=== PATIENT | female | born 1970 | race Caucasian/White ===

== ENCOUNTER 2017-05-10 16:29 | Observation (INO) | payer BC ==
[~2017-05-10] VITALS: Ht 170.2 cm; Wt 91.0 kg
[2017-05-10 16:31] VITALS: BP 166/90; PULSE 83; RESP 12; TEMP 98.1; O2SAT 98
[2017-05-10 16:54] VITALS: BP 161/82; PULSE 71; RESP 14; TEMP 98.5; O2SAT 95
[2017-05-10] MEDS ORDERED: ONDANSETRON HCL 4 MG/2 ML VIAL IV PUSH ONE (17:30)
--- NOTE | 2017-05-10 17:37 | PD ---
HPI Chief Complaint: Neuro Symptoms/ Deficits Time Seen by Provider: 17:07 Travel History International Travel<30 days: No Contact w/Intl Traveler<30days: No Traveled to known affect area: No History of Present Illness HPI 47-year-old female complains of headache, pain and numbness sensation in the right side of face, pain and numbness of the right-sided neck and right shoulder pad area and numbness and tingling sensation in both arms. Patient states that the symptoms started about half an hour prior coming to the emergency room. Patient states the headache aching headache diffuse over the head. Patient denies any visual change. Patient denies any photophobia. Patient denies any neck stiffness. Patient denies any chest pain or shortness of breath. Patient denies abdominal pain. Patient denies any nausea vomiting diarrhea. Patient denies any back pain. Patient denies any fever chills. Patient denies any history TIA or CVA. Patient denies history hypertension, diabetes, dyslipidemia. PFSH Past Medical History Medical History: Denies Significant Hx ?: Not Past Surgical History Surgical History: No Previous Surgery Section: Yes Social History Alcohol Use: Yes Tobacco Use: No Substance Use: No Allergies-Medications (Allergen,Severity, Reaction): Coded Allergies: No Known Allergies (Unverified , 05/10/17) Review of Systems General / Constitutional: No: Fever Eyes: No: Visual changes HENT: Positive: Headaches Cardiovascular: No: Chest Pain or Discomfort Respiratory: No: Shortness of Breath Gastrointestinal: No: Abdominal Pain Genitourinary: No: Dysuria Musculoskeletal: No: Pain Skin: No Rash Neurologic: Positive: Paresthesia, No: Weakness Psychiatric: No: Depression Endocrine: No: Polydipsia Hematologic/Lymphatic: No: Easy Bruising Physical Exam Narrative GENERAL: Well-nourished, well-developed patient. SKIN: Focused skin assessment warm/dry. HEAD: Normocephalic. EYES: No scleral icterus. No injection or drainage. Pupils 2 mm equal reactive. NECK: Supple, trachea midline. No JVD or lymphadenopathy. CARDIOVASCULAR: Regular rate and rhythm without murmurs, gallops, or rubs. RESPIRATORY: Breath sounds equal bilaterally. No accessory muscle use. GASTROINTESTINAL: Abdomen soft, non-tender, nondistended. MUSCULOSKELETAL: No cyanosis, or edema. BACK: Nontender without obvious deformity. No CVA tenderness. Neurologic exam: Patient's awake and alert oriented 3. No obvious focal neurological deficit. Data Data Last Documented VS Vital Signs Date Time Temp Pulse Resp B/P (MAP) Pulse Ox O2 Delivery O2 Flow Rate FiO2 05/10/17 16:54 98.5 71 14 161/82 (108) 95 Room Air Orders Orders Electrocardiogram (05/10/17 17:07) Complete Blood Count With Diff (05/10/17 17:07) Comprehensive Metabolic Panel (05/10/17 17:07) Prothrombin Time / Inr (Pt) (05/10/17 17:07) Act Partial Throm Time (Ptt) (05/10/17 17:07) Chest, Single Ap (05/10/17 17:07) Ct Brain W/O Iv Contrast(Rout) (05/10/17 17:07) Iv Access Insert/Monitor (05/10/17 17:07) Ecg Monitoring (05/10/17 17:07) Oximetry (05/10/17 17:07) Ed Urine Pregnancytest Poc (05/10/17 17:07) Ondansetron Inj (Zofran Inj) (05/10/17 17:30) MDM Medical Decision Making Medical Screen Exam Complete: Yes Emergency Medical Condition: Yes Differential Diagnosis Differential diagnosis including neuralgia, migraine headache, tension headache , cluster headache, radiculopathy, TIA, CVA. Narrative Course 47-year-old female with headache, pain and numbness sensation the right side of face, pain and numbness sensation the right shoulder, numbness and tingling sensation bilateral upper extremity. Navdeep Bryant MD May 10, 2017 17:37
[2017-05-10 17:53] LABS: AUTOMATED NEUTROPHIL # 5.2 TH/MM3 (1.8-7.7); BASOPHIL # 0.1 TH/MM3 (0-0.2); BASOPHIL % 0.9 % (0.0-2.0); EOSINOPHIL # 0.4 TH/MM3 (0-0.4); EOSINOPHIL % 4.1 % (0.0-4.0); HEMATOCRIT 43.1 % (35.0-46.0); HEMO FLAGS DIFF FINAL; LYMPH % 38.1 % (9.0-44.0); LYMPHOCYTE # 4.1 TH/MM3 (1.0-4.8); MEAN CELL VOLUME 90.2 FL (80.0-100.0); MEAN CORPUSCULAR HEMOGLOBIN 30.1 PG (27.0-34.0); MEAN CORPUSCULAR HGB CONC 33.3 % (32.0-36.0); MONO % 8.6 % (0.0-8.0); NEUT % 48.3 % (16.0-70.0); PLATELET COUNT 243 TH/MM3 (150-450); RED BLOOD COUNT 4.78 MIL/MM3 (4.00-5.30); RED CELL DISTRIBUTION WIDTH 13.2 % (11.6-17.2); WHITE BLOOD COUNT 10.7 TH/MM3 (4.0-11.0)
[2017-05-10 18:09] LABS: ALT (GPT) 19 U/L (10-53); ANION GAP 9 MEQ/L (5-15); AST (GOT) 14 U/L (15-37); BICARBONATE 24.8 MEQ/L (21.0-32.0); BLOOD UREA NITROGEN 10 MG/DL (7-18); CHLORIDE 105 MEQ/L (98-107); GLOMERULAR FILTRATION RATE 69 ML/MIN (>89); POTASSIUM 3.2 MEQ/L (3.5-5.1); SODIUM (NA) 139 MEQ/L (136-145)
[2017-05-10 18:11] LABS: ALKALINE PHOSPHATASE 65 U/L (45-117); TOTAL BILIRUBIN ADULT 0.4 MG/DL (0.2-1.0)
[2017-05-10] MEDS ORDERED: diphenhydrAMINE HCL 50 MG/ML VIAL IV PUSH ONE (18:15)
[2017-05-10] MEDS ORDERED: METOCLOPRAMIDE HCL 10 MG/2 ML VIAL IV PUSH ONE (18:15)
[2017-05-10 18:32] LABS: APTT (PATIENT) 22.1 SEC (24.3-30.1); INTERNATIONAL NORMALIZED RATIO 0.9 RATIO; PROTHROMBIN TIME - PATIENT 10.3 SEC (9.8-11.6)
--- NOTE | 2017-05-10 18:44 | RADRPT ---
EXAM DATE/TIME: 05/10/2017 18:34 [facility] COMPARISON: No previous studies available for comparison. INDICATIONS : Cephalgia and dizziness. RADIATION DOSE: 31.26 CTDIvol (mGy) MEDICAL HISTORY : None SURGICAL HISTORY : None. ENCOUNTER: Initial ACUITY: 1 day PAIN SCALE: 5/10 LOCATION: cranial TECHNIQUE: Multiple contiguous axial images were obtained of the head. Using automated exposure control and adj ustment of the mA and/or kV according to patient size, radiation dose was kept as low as reasonably a chievable to obtain optimal diagnostic quality images. DICOM format image data is available electro nically for review and comparison. FINDINGS: CEREBRUM: The ventricles are normal for age. No evidence of midline shift, mass lesion, hemorrhage or acute in farction. No extra-axial fluid collections are seen. POSTERIOR FOSSA: The cerebellum and brainstem are intact. The 4th ventricle is midline. The cerebellopontine angle i s unremarkable. EXTRACRANIAL: The visualized portion of the orbits is intact. SKULL: The calvaria is intact. No evidence of skull fracture. CONCLUSION: Negative noncontrast head CT. Fracisco Coto MD on May 10, 2017 at 18:43 Board Certified Radiologist. This report was verified electronically.
--- NOTE | 2017-05-10 19:02 | RADRPT ---
EXAM DATE/TIME: 05/10/2017 18:38 [facility] COMPARISON: No previous studies available for comparison. INDICATIONS : Shortness of breath and vomitting. MEDICAL HISTORY : None. SURGICAL HISTORY : None. ENCOUNTER: Initial ACUITY: 1 day PAIN SCORE: 0/10 LOCATION: Bilateral chest FINDINGS: A single view of the chest demonstrates the lungs to be symmetrically aerated without evidence of mas s, infiltrate or effusion. The cardiomediastinal contours are unremarkable. Osseous structures are intact. CONCLUSION: No evidence of acute cardiopulmonary disease. Fracisco Coto MD on May 10, 2017 at 19:00 Board Certified Radiologist. This report was verified electronically.
[2017-05-10 19:55] VITALS: BP 129/69; PULSE 71; RESP 18; O2SAT 97
--- NOTE | 2017-05-10 20:09 | RADRPT ---
EXAM DATE/TIME: 05/10/2017 19:01 [facility] COMPARISON: No previous studies available for comparison. INDICATIONS : CVA. MEDICAL HISTORY : None. SURGICAL HISTORY : section. ENCOUNTER: Initial ACUITY: 1 day PAIN SCORE: 0/10 LOCATION: cranial Please note a normal MRA of the brain does not entirely exclude the possibility of a small aneurysm, nor the possibility of distal intracranial vessel disease. TECHNIQUE: 3D time of flight MRA was performed. Source images, multiplanar STS MIP, and 3D volume MIP reconstru ctions were reviewed. FINDINGS: There is decreased filling of the left A1 segment, appears to be congenital/developmental. The left A 2 and distal segments fill normally via anterior communicating. No acute obstruction. No aneurysm.. CONCLUSION: No acute abnormality of the intracranial arteries. Fracisco Coto MD on May 10, 2017 at 20:06 Board Certified Radiologist. This report was verified electronically.
--- NOTE | 2017-05-10 20:14 | RADRPT ---
EXAM DATE/TIME: 05/10/2017 19:01 [facility] COMPARISON: No previous studies available for comparison. INDICATIONS : CVA. MEDICAL HISTORY : None. SURGICAL HISTORY : section. ENCOUNTER: Initial ACUITY: 1 day PAIN SCORE: 0/10 LOCATION: cranial TECHNIQUE: Multiplanar, multisequence MRI of the brain was performed without contrast. FINDINGS: CEREBRUM: The ventricles are normal for age. No evidence of midline shift, mass lesion, hemorrhage or acute in farction. No extraaxial fluid collections are seen. The pituitary gland and suprasellar cistern are normal in configuration. WHITE MATTER: No significant signal abnormalities are seen in the white matter. POSTERIOR FOSSA: The cerebellum and brainstem are intact. The 4th ventricle is midline. The cerebellopontine angle is unremarkable. The cerebellar tonsils are normal in position. DIFFUSION IMAGING: No focal areas of restricted diffusion are seen. No evidence of acute infarction. EXTRACRANIAL: The visualized portions of the orbits and paranasal sinuses are unremarkable. CONCLUSION: Normal noncontrast MRI of the brain. Fracisco Coto MD on May 10, 2017 at 20:12 Board Certified Radiologist. This report was verified electronically.
--- NOTE | 2017-05-10 20:15 | RADRPT ---
EXAM DATE/TIME: 05/10/2017 19:01 [facility] COMPARISON: No previous studies available for comparison. INDICATIONS : Migraines. Bilat hand numbness CONTRAST: 20 cc Omniscan (gadodiamide) IV MEDICAL HISTORY : None. SURGICAL HISTORY : section. ENCOUNTER: Initial ACUITY: 1 day PAIN SCORE: 0/10 LOCATION: cranial Percent stenosis is calculated using the diameter of the stenotic region over the diameter of the nor mal distal internal carotid artery. TECHNIQUE: Bolus infused MRA of the extracranial circulation was performed using a neurovascular coil. Post pro cessing was performed including rotating subvolume maximum intensity projections of each carotid deni ry, rotating full volume maximum intensity projections of both carotid arteries, sagittal and coronal sliding thin slab reformations of each carotid artery, and left oblique sliding thin slab reformatio n through the aortic arch to include the origin of the arch branch vessels. FINDINGS: AORTIC ARCH: There is a three vessel origin of the great vessels from the aorta. No evidence of ostial narrowing. RIGHT CAROTID: The common carotid artery is intact. The carotid bulb has a normal configuration without ulceration or narrowing. The internal carotid artery lumen is smooth without stenosis. The external carotid ar prosper is intact. LEFT CAROTID: The common carotid artery is intact. The carotid bulb has a normal configuration without ulceration or narrowing. The internal carotid artery lumen is smooth without stenosis. The external carotid ar prosper is intact. VERTEBRALS: The vertebral arteries have a symmetric diameter. No stenotic lesions are seen. CONCLUSION: Normal carotid MRA. Fracisco Coto MD on May 10, 2017 at 20:13 Board Certified Radiologist. This report was verified electronically.
[2017-05-10] MEDS ORDERED: GADODIAMIDE PF 287 MG/ML 20 ML VIAL (for RAD MRI) IVCONTRAST ONE (20:52)
[2017-05-10] MEDS ORDERED: SODIUM CHLOR 0.9% 1000 ML INJ 1,000 ML IV SCH (21:00)
[2017-05-10] MEDS ORDERED: MECLIZINE HCL 25 MG TAB PO ONE (21:00)
[2017-05-10 21:10] VITALS: BP 142/85; PULSE 73; RESP 18; O2SAT 100
--- NOTE | 2017-05-10 21:34 | EKG ---
Date Performed: 05/10/2017 Time Performed: 17:34:19 PTAGE: 47 years EKG: Sinus rhythm NORMAL ECG NO PREVIOUS TRACING DOCTOR: Smith Coats Interpretating Date/Time 05/10/2017 21:32:07
--- NOTE | 2017-05-10 21:40 | HHI.HP ---
[facility] Service [facility] Primary Care Physician Non-Staff Admission Diagnosis vertigo Diagnoses: (1) Vertigo Diagnosis: Principal (2) Headache Diagnosis: Principal (3) Intractable nausea and vomiting Diagnosis: Principal (4) Hypokalemia Diagnosis: Principal (5) Dehydration Diagnosis: Principal (6) HTN (hypertension) Diagnosis: Principal Travel History International Travel<30 Days: No Contact w/Intl Traveler <30 Da: No Traveled to Known Affected Are: No History of Present Illness This is a 47-year-old female with no significant PMH who presented to the ER with complaints of headache, nausea, vomiting and right-sided numbness and tingling starting earlier tonight. Patient is visiting from out of town, was at dinner with Mother earlier this evening when she had acute onset of headache with right-sided numbness and tingling. No previous history of similar symptoms in the past. Denies fever, chills or sick contacts. On arrival, BP 166/90, HR 83, O2 sat 98% on RA, Afebrile. CBC unremarkable. K+ 3.2. GFR 69. INR 0.9. CXR with no acute findings. CT Head negative. MRA Neck normal. MRA Head negative. MRI Brain normal. S/p multiple doses of antiemetics in ER w / minimal improvement, continues w/ persistent nausea/vomiting and headache. Review of Systems Except as stated in HPI: all other systems reviewed are Neg ROS: 14 point review of systems otherwise negative. Past Family Social History Past Medical History PMH: None Past Surgical History PAST SURGICAL HISTORY: Allergies: Coded Allergies: No Known Allergies (Unverified , 05/10/17) Family History PAST FAMILY HISTORY: Reviewed. No h/o DM or CAD Social History PAST SOCIAL HISTORY: Occasional alcohol. Negative for tobacco or drugs. Physical Exam Vital Signs Vital Signs Date Time Temp Pulse Resp B/P (MAP) Pulse Ox O2 Delivery O2 Flow Rate FiO2 05/10/17 16:54 98.5 71 14 161/82 (108) 95 Room Air 05/10/17 16:31 98.1 83 12 166/90 (115) 98 Physical Exam PE: GENERAL: Pleasant middle-aged white female in no acute distress, appears to feel unwell. HEENT: PERRLA, EOMI. No scleral icterus or conjunctival pallor. No lid lag or facial droop. +nystagmus CARDIOVASCULAR: Regular rate and rhythm. No obvious murmurs to auscultation. No chest tenderness to palpation. RESPIRATORY: No obvious rhonchi or wheezing. Clear to auscultation. Breath sounds equal bilaterally. GASTROINTESTINAL: Abdomen soft, non-tender, nondistended. BS normal. MUSCULOSKELETAL: Extremities without clubbing, cyanosis, or edema. No obvious deformities. NEUROLOGICAL: Awake, alert and oriented x4. No focal neurologic deficits. Moving both upper and lower extremities spontaneously. Laboratory Laboratory Tests Test 05/10/17 17:26 White Blood Count 10.7 Red Blood Count 4.78 Hemoglobin 14.4 Hematocrit 43.1 Mean Corpuscular Volume 90.2 Mean Corpuscular Hemoglobin 30.1 Mean Corpuscular Hemoglobin Concent 33.3 Red Cell Distribution Width 13.2 Platelet Count 243 Mean Platelet Volume 9.2 Neutrophils (%) (Auto) 48.3 Lymphocytes (%) (Auto) 38.1 Monocytes (%) (Auto) 8.6 Eosinophils (%) (Auto) 4.1 Basophils (%) (Auto) 0.9 Neutrophils # (Auto) 5.2 Lymphocytes # (Auto) 4.1 Monocytes # (Auto) 0.9 Eosinophils # (Auto) 0.4 Basophils # (Auto) 0.1 CBC Comment DIFF FINAL Differential Comment Prothrombin Time 10.3 Prothromb Time International Ratio 0.9 Activated Partial Thromboplast Time 22.1 Blood Urea Nitrogen 10 Creatinine 0.89 Random Glucose 112 Total Protein 7.6 Albumin 4.0 Calcium Level 8.4 Alkaline Phosphatase 65 Aspartate Amino Transf (AST/SGOT) 14 Alanine Aminotransferase (ALT/SGPT) 19 Total Bilirubin 0.4 Sodium Level 139 Potassium Level 3.2 Chloride Level 105 Carbon Dioxide Level 24.8 Anion Gap 9 Estimat Glomerular Filtration Rate 69 Result Diagram: 05/10/17 1726 05/10/17 172 Caprini VTE Risk Assessment Caprini VTE Risk Assessment: No/Low Risk (score <= 1) Caprini Risk Assessment Model Point Value = 1 Point Value = 2 Point Value = 3 Point Value = 5 Age 41-60 Minor surgery BMI > 25 kg/m2 Swollen legs Varicose veins or History of unexplained or recurrent spontaneous Oral contraceptives or hormone replacement Sepsis (< 1 month) Serious lung disease, including pneumonia (< 1 month) Abnormal pulmonary function Acute myocardial infarction Congestive heart failure (< 1 month) History of inflammatory bowel disease Medical patient at bed rest Age 61-74 Arthroscopic surgery Major open surgery (> 45 min) Laparoscopic surgery (> 45 min) Malignancy Confined to bed (> 72 hours) Immobilizing plaster cast Central venous access Age >= 75 History of VTE Family history of VTE Factor V Leiden Prothrombin [id number] Lupus anticoagulant Anticardiolipin antibodies Elevated serum homocysteine Heparin-induced thrombocytopenia Other congenital or acquired thrombophilia Stroke (< 1 month) Elective arthroplasty Hip, pelvis, or leg fracture Acute spinal cord injury (< 1 month) Prophylaxis Regimen Total Risk Factor Score Risk Level Prophylaxis Regimen 0-1 Low Early ambulation 2 Moderate Order ONE of the following: *Sequential Compression Device (SCD) *Heparin 5000 units SQ BID 3-4 Higher Order ONE of the following medications: *Heparin 5000 units SQ TID *Enoxaparin/Lovenox 40 mg SQ daily (WT < 150 kg, CrCl > 30 mL/min) *Enoxaparin/Lovenox 30 mg SQ daily (WT < 150 kg, CrCl > 10-29 mL/min) *Enoxaparin/Lovenox 30 mg SQ BID (WT < 150 kg, CrCl > 30 mL/min) AND/OR *Sequential Compression Device (SCD) 5 or more Highest Order ONE of the following medications: *Heparin 5000 units SQ TID (Preferred with Epidurals) *Enoxaparin/Lovenox 40 mg SQ daily (WT < 150 kg, CrCl > 30 mL/min) *Enoxaparin/Lovenox 30 mg SQ daily (WT < 150 kg, CrCl > 10-29 mL/min) *Enoxaparin/Lovenox 30 mg SQ BID (WT < 150 kg, CrCl > 30 mL/min) AND *Sequential Compression Device (SCD) Assessment and Plan Problem List: (1) Vertigo ICD Code: R42 - Dizziness and giddiness (2) Headache ICD Code: R51 - Headache (3) Intractable nausea and vomiting ICD Code: R11.2 - Nausea with vomiting, unspecified (4) Dehydration ICD Code: E86.0 - Dehydration (5) Hypokalemia ICD Code: E87.6 - Hypokalemia (6) HTN (hypertension) ICD Code: I10 - Essential (primary) hypertension Assessment and Plan A/P: 1. Vertigo: CT Head, MRI/MRA Head/Neck and MRI Brain all normal, images reviewed by me, no central etiology. Meclizine prn, Ativan if needed, IVF for hydration. 2. Intractable Nausea/Vomiting: secondary to above, continue w/ antiemetics/ analgesics as needed. 3. Headache: no h/o Migraine, imaging negative as above. Analgesics as needed. 4. Dehydration: GFR 69, no previous labs for comparison, IVF for hydration, repeat labs in am. 5. Hypokalemia: K+ 3.2, will replace and recheck in am. 6. HTN: BP 160's, likely compounded by headache, nausea/vomiting. BP currently 140's, will monitor. 7. DVT Prophylaxis: SCD/Teds. 8. Social work for d/c planning as needed. 9. Case discussed w/ ER physician at length. Priscila Cornell MD May 10, 2017 21:40
[2017-05-10] MEDS ORDERED: MORPHINE SULFATE 4 MG/ML INJ IV PUSH PRN (21:45)
[2017-05-10] MEDS ORDERED: MAGNESIUM HYDROXIDE SUSP 30 ML CUP PO PRN (21:45)
[2017-05-10] MEDS ORDERED: ONDANSETRON HCL 4 MG/2 ML VIAL IVP PRN (21:45)
[2017-05-10] MEDS ORDERED: ACETAMINOPHEN/HYDROcodone 325 MG/5 MG TAB PO PRN (21:45)
[2017-05-10] MEDS ORDERED: SODIUM CHLORIDE 0.9% FLUSH 10 ML FLUSH IV FLUSH PRN (21:45)
[2017-05-10] MEDS ORDERED: BISACODYL 10 MG SUPP RECTAL PRN (21:45)
[2017-05-10] MEDS ORDERED: PROCHLORPERAZINE INJ 10 MG/2 ML VIAL IV PUSH PRN (21:45)
[2017-05-10] MEDS ORDERED: LACTULOSE SYRUP 20 GM/30 ML CUP PO PRN (21:45)
[2017-05-10] MEDS ORDERED: TRIMETHOBENZAMIDE INJ 200 MG/2 ML VIAL IM PRN (21:45)
[2017-05-10] MEDS ORDERED: MECLIZINE HCL 25 MG TAB PO PRN (21:45)
[2017-05-10] MEDS ORDERED: ACETAMINOPHEN 325 MG TAB PO PRN (21:45)
[2017-05-10] MEDS ORDERED: SENNOSIDES 8.6 MG TAB PO PRN (21:45)
[2017-05-10] MEDS: SODIUM CHLOR 0.9% 1000 ML INJ 1,000 ML IV SCH (23:45)
[2017-05-11 00:11] VITALS: BP 143/76; PULSE 71; RESP 16; TEMP 98.3; O2SAT 96
--- NOTE | 2017-05-11 00:42 | PD ---
Data Data Last Documented VS Vital Signs Date Time Temp Pulse Resp B/P (MAP) Pulse Ox O2 Delivery O2 Flow Rate FiO2 05/10/17 21:10 73 18 142/85 (104) 100 05/10/17 19:55 Room Air 05/10/17 16:54 98.5 Orders Orders Electrocardiogram (05/10/17 17:07) Complete Blood Count With Diff (05/10/17 17:07) Comprehensive Metabolic Panel (05/10/17 17:07) Prothrombin Time / Inr (Pt) (05/10/17 17:07) Act Partial Throm Time (Ptt) (05/10/17 17:07) Chest, Single Ap (05/10/17 17:07) Ct Brain W/O Iv Contrast(Rout) (05/10/17 17:07) Iv Access Insert/Monitor (05/10/17 17:07) Ecg Monitoring (05/10/17 17:07) Oximetry (05/10/17 17:07) Ed Urine Pregnancytest Poc (05/10/17 17:07) Ondansetron Inj (Zofran Inj) (05/10/17 17:30) Mri Brain W/O Contrast (05/10/17 17:34) Mra Brain W/O Contrast (Cow) (05/10/17 17:34) Mra Carotids W Contrast (05/10/17 17:34) Metoclopramide Inj (Reglan Inj) (05/10/17 18:15) Diphenhydramine Inj (Benadryl Inj) (05/10/17 18:15) Gadodiamide Pf Inj (Omniscan Pf Inj) (05/10/17 20:52) Meclizine (Antivert) (05/10/17 21:00) Sodium Chlor 0.9% 1000 Ml Inj (Ns 1000 M (05/10/17 21:00) Admit Order (Ed Use Only) (05/10/17 21:27) Labs Laboratory Tests Test 05/10/17 17:26 White Blood Count 10.7 TH/MM3 Red Blood Count 4.78 MIL/MM3 Hemoglobin 14.4 GM/DL Hematocrit 43.1 % Mean Corpuscular Volume 90.2 FL Mean Corpuscular Hemoglobin 30.1 PG Mean Corpuscular Hemoglobin Concent 33.3 % Red Cell Distribution Width 13.2 % Platelet Count 243 TH/MM3 Mean Platelet Volume 9.2 FL Neutrophils (%) (Auto) 48.3 % Lymphocytes (%) (Auto) 38.1 % Monocytes (%) (Auto) 8.6 % Eosinophils (%) (Auto) 4.1 % Basophils (%) (Auto) 0.9 % Neutrophils # (Auto) 5.2 TH/MM3 Lymphocytes # (Auto) 4.1 TH/MM3 Monocytes # (Auto) 0.9 TH/MM3 Eosinophils # (Auto) 0.4 TH/MM3 Basophils # (Auto) 0.1 TH/MM3 CBC Comment DIFF FINAL Differential Comment Prothrombin Time 10.3 SEC Prothromb Time International Ratio 0.9 RATIO Activated Partial Thromboplast Time 22.1 SEC Blood Urea Nitrogen 10 MG/DL Creatinine 0.89 MG/DL Random Glucose 112 MG/DL Total Protein 7.6 GM/DL Albumin 4.0 GM/DL Calcium Level 8.4 MG/DL Alkaline Phosphatase 65 U/L Aspartate Amino Transf (AST/SGOT) 14 U/L Alanine Aminotransferase (ALT/SGPT) 19 U/L Total Bilirubin 0.4 MG/DL Sodium Level 139 MEQ/L Potassium Level 3.2 MEQ/L Chloride Level 105 MEQ/L Carbon Dioxide Level 24.8 MEQ/L Anion Gap 9 MEQ/L Estimat Glomerular Filtration Rate 69 ML/MIN [facility] Supervised Visit with ROBBIE: No Interpretation(s) No leukocytosis Mild hypokalemia Last [address] 05/10/17 2475 Signed Impressions: Service Date/Time: Wednesday, May 10, 2017 18:34 - CONCLUSION: Negative noncontrast head CT. Fracisco Coto MD MRI and MRA are reassuring Differential Diagnosis Stroke, mass, complex migraine, BPPV, labyrinthitis, vestibular neuritis Narrative Course This is a 47-year-old female who presents to the emergency department with atypical symptoms including pressure on the right side of her head, some sinus congestion, numbness in the right side of her body and subsequent vomiting. She was seen initially by Dr. Bryant who obtained an MRI and MRA of the brain which were both reassuring. When I went to reassess the patient she was actively vomiting and looked uncomfortable. She had horizontal nystagmus. I suspect she is acutely vertiginous and she likely has a peripheral etiology. She was given meclizine. She will be admitted for symptom control. Physician Communication Physician Communication Discussed with Dr. Cornell Admitting Information Admitting Physician Requests: Observation Jennifer Mccray MD May 11, 2017 00:42
[2017-05-11 04:33] VITALS: BP 143/75; PULSE 78; RESP 18; TEMP 97.9; O2SAT 97
[2017-05-11 08:18] VITALS: BP 140/65; PULSE 74; RESP 20; TEMP 97.5; O2SAT 96
[2017-05-11 08:20] LABS: AUTOMATED NEUTROPHIL # 9.8 TH/MM3 (1.8-7.7); BASOPHIL % 0.2 % (0.0-2.0); HEMATOCRIT 41.4 % (35.0-46.0); HEMO FLAGS DIFF FINAL; LYMPH % 11.4 % (9.0-44.0); LYMPHOCYTE # 1.3 TH/MM3 (1.0-4.8); MEAN CELL VOLUME 89.8 FL (80.0-100.0); MEAN CORPUSCULAR HGB CONC 33.4 % (32.0-36.0); MONO % 3.7 % (0.0-8.0); NEUT % 84.7 % (16.0-70.0); PLATELET COUNT 228 TH/MM3 (150-450); RED BLOOD COUNT 4.61 MIL/MM3 (4.00-5.30); RED CELL DISTRIBUTION WIDTH 13.2 % (11.6-17.2); WHITE BLOOD COUNT 11.5 TH/MM3 (4.0-11.0)
[2017-05-11 08:43] LABS: ANION GAP 11 MEQ/L (5-15); AST (GOT) 14 U/L (15-37); BICARBONATE 21.9 MEQ/L (21.0-32.0); BLOOD UREA NITROGEN 7 MG/DL (7-18); CHLORIDE 107 MEQ/L (98-107); GLOMERULAR FILTRATION RATE 74 ML/MIN (>89); POTASSIUM 3.3 MEQ/L (3.5-5.1); SODIUM (NA) 140 MEQ/L (136-145)
[2017-05-11 08:44] LABS: ALT (GPT) 16 U/L (10-53)
[2017-05-11] MEDS ORDERED: AMLO5TAB2 PO (08:44)
[2017-05-11] MEDS ORDERED: LORazepam 2 MG/ML VIAL IV PUSH ONE (08:45)
[2017-05-11 08:46] LABS: ALKALINE PHOSPHATASE 61 U/L (45-117); TOTAL BILIRUBIN ADULT 0.5 MG/DL (0.2-1.0)
--- NOTE | 2017-05-11 08:58 | HHI.PR ---
Subjective Remarks Follow up for vertigo, nausea/vomiting, right sided numbness/tingling. The patient reports continued intractable dizziness and nausea, but no vomiting today. Dizziness worse with any position changes. She has a very difficult time getting up to the bedside commode. She feels very unsteady on her feet. She denies any headache. She does admit that she hasn't taken her amlodipine since Saturday as she forgot to bring it with her on vacation. She also complains of some odynophagia, denies dysphagia. She has 4 children however none are sick. Denies any other sick contacts although was on an airplane recently. She denies any leg swelling, chest pain, palpitations, or shortness of breath. Objective Vitals Vital Signs Date Time Temp Pulse Resp B/P (MAP) Pulse Ox O2 Delivery O2 Flow Rate FiO2 05/11/17 08:18 97.5 74 20 140/65 (90) 96 05/11/17 04:33 97.9 78 18 143/75 (97) 97 05/11/17 00:11 98.3 71 16 143/76 (98) 96 05/10/17 21:10 73 18 142/85 (104) 100 05/10/17 19:55 71 18 129/69 (89) 97 Room Air 05/10/17 16:54 98.5 71 14 161/82 (108) 95 Room Air 05/10/17 16:31 98.1 83 12 166/90 (115) 98 I/O 05/10/17 05/10/17 05/10/17 05/11/17 05/11/17 05/11/17 07:00 15:00 23:00 07:00 15:00 23:00 Intake Total 1300 ml Balance 1300 ml Intake IV Total 1300 ml Result Diagram: 05/11/17 0643 05/11/17 0643 Imaging Last Impressions Neck Magnetic Resonance Angiography 05/10/171733 Signed Impressions: Service Date/Time: Wednesday, May 10, 2017 19:01 - CONCLUSION: Normal carotid MRA. Fracisco Coto MD Head Magnetic Resonance Angiography 05/10/171733 Signed Impressions: Service Date/Time: Wednesday, May 10, 2017 19:01 - CONCLUSION: No acute abnormality of the intracranial arteries. Fracisco Coto MD Brain MRI 05/10/174 Signed Impressions: Service Date/Time: Wednesday, May 10, 2017 19:01 - CONCLUSION: Normal noncontrast MRI of the brain. Fracisco Coto MD Head CT 05/10/171706 Signed Impressions: Service Date/Time: Wednesday, May 10, 2017 18:34 - CONCLUSION: Negative noncontrast head CT. Fracisco Coto MD Chest X-Ray 05/10/171706 Signed Impressions: Service Date/Time: Wednesday, May 10, 2017 18:38 - CONCLUSION: No evidence of acute cardiopulmonary disease. Fracisco Coto MD Objective Remarks GENERAL: Well-nourished, well-developed middle aged female patient in [facility]. SKIN: Warm and dry. No rash. HEENT: Normocephalic. Atraumatic.Pupils equal and round. No obvious nystagmus. Mucous membranes pink and moist. Oropharynx clear, no tonsillar edema/exudate. NECK: Supple. Trachea midline. No palpable lymphadenopathy. CARDIOVASCULAR: Regular rate and rhythm. S1, S2 noted. No murmur appreciated. RESPIRATORY: No accessory muscle use. Clear to auscultation. Breath sounds equal bilaterally. GASTROINTESTINAL: Abdomen soft, non-tender, nondistended. Normoactive bowel sounds x4. MUSCULOSKELETAL: No obvious deformities. Extremities without clubbing, cyanosis , or edema. NEUROLOGICAL: Awake and alert. No obvious cranial nerve deficits. Motor grossly within normal limits. 5/5 muscle strength in bilateral upper and lower extremities. Facial/BUE sensation equal and intact. Normal speech. PSYCHIATRIC: Appropriate mood and affect; insight and judgment normal. Medications and IVs Current Medications Medications (Trade) Dose Ordered Sig/Scott Route Start Time Stop Time Status Last Admin (Tigan Inj) 200 mg Q6H PRN IM 05/10/17 21:45 (Compazine Inj) 10 mg Q4H PRN IV PUSH 05/10/17 21:45 (Benadryl Inj) 25 mg Q4H PRN IV PUSH 05/10/17 21:45 Sodium Chloride 1,000 ml @ 100 mls/hr Q10H IV 05/10/17 21:36 05/10/17 23:45 (NS Flush) 2 ml UNSCH PRN IV FLUSH 05/10/17 21:45 (NS Flush) 2 ml BID IV FLUSH 05/11/17 09:00 (Zofran Inj) 4 mg Q6H PRN IVP 05/10/17 21:45 05/11/17 02:02 (Tylenol) 650 mg Q6H PRN PO 05/10/17 21:45 ([place] 5-325 Mg) 1 tab Q4H PRN PO 05/10/17 21:45 (Morphine Inj) 2 mg Q3H PRN IV PUSH 05/10/17 21:45 (Tiffany-Colace) 1 tab BID PO 05/11/17 09:00 (Milk Of Magnesia Liq) 30 ml Q12H PRN PO 05/10/17 21:45 (Senokot) 17.2 mg Q12H PRN PO 05/10/17 21:45 (Dulcolax Supp) 10 mg DAILY PRN RECTAL 05/10/17 21:45 (Lactulose Liq) 30 ml DAILY PRN PO 05/10/17 21:45 (Norvasc) 5 mg DAILY PO 05/11/17 09:00 (Antivert) 25 mg Q8H PO 05/11/17 09:00 UNV A/P Problem List: (1) Vertigo ICD Code: R42 - Dizziness and giddiness (2) Headache ICD Code: R51 - Headache (3) Intractable nausea and vomiting ICD Code: R11.2 - Nausea with vomiting, unspecified (4) Dehydration ICD Code: E86.0 - Dehydration (5) Hypokalemia ICD Code: E87.6 - Hypokalemia (6) HTN (hypertension) ICD Code: I10 - Essential (primary) hypertension Assessment and Plan 47-year-old female with no significant PMH who presented to the ER with complaints of headache, nausea, vomiting and right-sided numbness and tingling starting earlier tonight. Benign Positional Paroxysmal Vertigo: CT Head, MRI/MRA Head/Neck and MRI Brain all normal, images reviewed by me, no central etiology. Start meclizine q8h scheduled. Give IV Ativan 1mg x1 now. Give IVF for hydration. Antiemetics prn. Monitor for improvement. Intractable Nausea/Vomiting: secondary to above, continue w/ antiemetics/ analgesics as needed. Headache: no h/o Migraine, imaging negative as above. Analgesics as needed. Headache improved. Dehydration: GFR 69, no previous labs for comparison, IVF for hydration, repeat labs today pending. Hypokalemia: K+ 3.2, given replacement. Repeat labs pending. HTN: BP 160's, likely secondary to missing home meds x3days, also compounded by headache/nausea/vomiting. BP currently 140's. Restart patient's amlodipine 5mg daily. Monitor BP, adjust antihypertensives as needed. DVT Prophylaxis: SCD/Teds. Discharge Planning 0845hrs: Discharge pending further clinical improvement, hopefully later today or tomorrow. Miroslava Jensen PA-C May 11, 2017 8:58 am
[2017-05-11] MEDS: DOCUSATE SODIUM 50 MG/SENNA 8.6 MG TAB PO SCH ×2 (09:00→21:00)
[2017-05-11] MEDS: SODIUM CHLORIDE 0.9% FLUSH 10 ML FLUSH IV FLUSH SCH ×2 (09:00→21:00)
[2017-05-11] MEDS: MECLIZINE HCL 25 MG TAB PO SCH ×2 (09:12→17:49)
[2017-05-11] MEDS: SODIUM CHLOR 0.9% 1000 ML INJ 1,000 ML IV SCH ×2 (09:12→17:51)
[2017-05-11] MEDS: amLODIPine BESYLATE 5 MG TAB PO SCH (09:13)
[2017-05-11 12:41] VITALS: BP 137/55; PULSE 72; RESP 20; TEMP 98.2; O2SAT 95
[2017-05-11] MEDS ORDERED: POTASSIUM CHLORIDE 20 MEQ CONTROLLED RELEASE TAB PO ONE (17:30)
[2017-05-11 20:55] VITALS: BP 134/60; PULSE 77; RESP 18; TEMP 98; O2SAT 98
[2017-05-11 23:19] VITALS: BP 145/73; PULSE 72; RESP 16; TEMP 98; O2SAT 98
[2017-05-12] MEDS: MECLIZINE HCL 25 MG TAB PO SCH ×3 (02:32→18:41)
[2017-05-12] MEDS: SODIUM CHLOR 0.9% 1000 ML INJ 1,000 ML IV SCH ×3 (03:36→20:57)
[2017-05-12 03:58] VITALS: BP 140/72; PULSE 72; RESP 17; TEMP 98.1; O2SAT 96
[2017-05-12 07:56] VITALS: BP 192/79; PULSE 78; RESP 20; TEMP 98; O2SAT 99
[2017-05-12] MEDS: amLODIPine BESYLATE 5 MG TAB PO SCH (08:00)
[2017-05-12] MEDS: DOCUSATE SODIUM 50 MG/SENNA 8.6 MG TAB PO SCH ×2 (08:00→20:57)
[2017-05-12] MEDS: SODIUM CHLORIDE 0.9% FLUSH 10 ML FLUSH IV FLUSH SCH ×2 (08:00→20:57)
[2017-05-12] MEDS ORDERED: LORazepam 2 MG/ML VIAL IV PUSH ONE (09:00)
[2017-05-12] MEDS: guaiFENesin E.R. 600 MG TAB PO SCH ×2 (09:36→20:57)
--- NOTE | 2017-05-12 10:00 | HHI.PR ---
Subjective Remarks Follow up for vertigo, right sided numbness/tingling. The patient reports feeling only slightly better today. She reports continued dizziness, worse with position changes. She can only ambulate 1-2 steps to the bedside commode. She states the IV ativan did help her slightly yesterday. She does not believe the meclizine is helping. She reports continued right hand tingling and subjective weakness. She also reports nasal congestion and facial pressure, worse on the right. She has continued sore throat/odynophagia. She is requesting soft foods. She has no other medical complaints at this time. Objective Vitals Vital Signs Date Time Temp Pulse Resp B/P (MAP) Pulse Ox O2 Delivery O2 Flow Rate FiO2 05/12/17 07:56 98.0 78 20 192/79 (116) 99 05/12/17 03:58 98.1 72 17 140/72 (94) 96 05/11/17 23:19 98.0 72 16 145/73 (97) 98 05/11/17 20:55 98.0 77 18 134/60 (84) 98 05/11/17 12:41 98.2 72 20 137/55 (82) 95 I/O 05/11/17 05/11/17 05/11/17 05/12/17 05/12/17 05/12/17 07:00 15:00 23:00 07:00 15:00 23:00 Intake Total 1300 ml Balance 1300 ml Intake IV Total 1300 ml # Voids 4 1 Result Diagram: 05/11/17 0643 05/11/17 0643 Imaging Last Impressions Neck Magnetic Resonance Angiography 05/10/171733 Signed Impressions: Service Date/Time: Wednesday, May 10, 2017 19:01 - CONCLUSION: Normal carotid MRA. Fracisco Coto MD Head Magnetic Resonance Angiography 05/10/171733 Signed Impressions: Service Date/Time: Wednesday, May 10, 2017 19:01 - CONCLUSION: No acute abnormality of the intracranial arteries. Fracisco Coto MD Brain MRI 05/10/171733 Signed Impressions: Service Date/Time: Wednesday, May 10, 2017 19:01 - CONCLUSION: Normal noncontrast MRI of the brain. Fracisco Coto MD Head CT 05/10/17 9437 Signed Impressions: Service Date/Time: Wednesday, May 10, 2017 18:34 - CONCLUSION: Negative noncontrast head CT. Fracisco Coto MD Chest X-Ray 05/10/17 1707 Signed Impressions: Service Date/Time: Wednesday, May 10, 2017 18:38 - CONCLUSION: No evidence of acute cardiopulmonary disease. Fracisco Coto MD Objective Remarks GENERAL: Well-nourished, well-developed middle aged female patient in [facility]. SKIN: Warm and dry. No rash. HEENT: Normocephalic. Atraumatic.Pupils equal and round. No obvious nystagmus. Mucous membranes pink and moist. Oropharynx clear, no tonsillar edema/exudate. NECK: Supple. Trachea midline. No palpable lymphadenopathy. CARDIOVASCULAR: Regular rate and rhythm. S1, S2 noted. No murmur appreciated. RESPIRATORY: No accessory muscle use. Clear to auscultation. Breath sounds equal bilaterally. GASTROINTESTINAL: Abdomen soft, non-tender, nondistended. Normoactive bowel sounds x4. MUSCULOSKELETAL: No obvious deformities. Extremities without clubbing, cyanosis , or edema. NEUROLOGICAL: Awake and alert. No obvious cranial nerve deficits. Motor grossly within normal limits. 5/5 muscle strength in bilateral upper and lower extremities. Facial/BUE sensation equal and intact. Normal speech. PSYCHIATRIC: Appropriate mood and affect; insight and judgment normal. Medications and IVs Current Medications Medications (Trade) Dose Ordered Sig/Scott Route Start Time Stop Time Status Last Admin (Tigan Inj) 200 mg Q6H PRN IM 05/10/17 21:45 (Compazine Inj) 10 mg Q4H PRN IV PUSH 05/10/17 21:45 (Benadryl Inj) 25 mg Q4H PRN IV PUSH 05/10/17 21:45 Sodium Chloride 1,000 ml @ 100 mls/hr Q10H IV 05/10/17 21:36 05/11/17 17:51 (NS Flush) 2 ml UNSCH PRN IV FLUSH 05/10/17 21:45 (NS Flush) 2 ml BID IV FLUSH 05/11/17 09:00 (Zofran Inj) 4 mg Q6H PRN IVP 05/10/17 21:45 05/11/17 02:02 (Tylenol) 650 mg Q6H PRN PO 05/10/17 21:45 ([place] 5-325 Mg) 1 tab Q4H PRN PO 05/10/17 21:45 (Morphine Inj) 2 mg Q3H PRN IV PUSH 05/10/17 21:45 (Tiffany-Colace) 1 tab BID PO 05/11/17 09:00 (Milk Of Magnesia Liq) 30 ml Q12H PRN PO 05/10/17 21:45 (Senokot) 17.2 mg Q12H PRN PO 05/10/17 21:45 (Dulcolax Supp) 10 mg DAILY PRN RECTAL 05/10/17 21:45 (Lactulose Liq) 30 ml DAILY PRN PO 05/10/17 21:45 (Norvasc) 5 mg DAILY PO 05/11/17 09:00 05/12/17 08:00 (Antivert) 25 mg Q8H PO 05/11/17 10:00 05/12/17 08:00 (Mucinex Er) 600 mg BID PO 05/12/17 09:00 05/12/17 09:36 A/P Problem List: (1) Vertigo ICD Code: R42 - Dizziness and giddiness (2) Headache ICD Code: R51 - Headache (3) Intractable nausea and vomiting ICD Code: R11.2 - Nausea with vomiting, unspecified (4) Dehydration ICD Code: E86.0 - Dehydration (5) Hypokalemia ICD Code: E87.6 - Hypokalemia (6) HTN (hypertension) ICD Code: I10 - Essential (primary) hypertension Assessment and Plan 47-year-old female with no significant PMH who presented to the ER with complaints of headache, nausea, vomiting and right-sided numbness and tingling starting earlier tonight. Benign Positional Paroxysmal Vertigo: CT Head, MRI/MRA Head/Neck and MRI Brain all normal, images reviewed by me, no central etiology. Continue meclizine q8h scheduled. Patient some relief with Ativan, will give another IV [id number] x1 now. Give IVF for hydration. Antiemetics prn. Consult PT. Patient seen again with Dr. Mendes, Hernesto maneuver done, patient had initial improvement of nystagmus however returned within a few minutes. Neurology consulted. Right Sided Paresthesias: patient reporting numbness/tingling, no significant weakness on exam. All imaging including Brain MRI/MRA negative as above. Consult neurology. URI: suspect viral. Likely contributing to symptoms above. Afebrile with minimal leukocytosis WBC 11.5. Supportive treatment with IVF, mucinex bid, Afrin bid. Intractable Nausea/Vomiting: secondary to above, continue w/ antiemetics/ analgesics as needed. Resolved. Headache: no h/o Migraine, imaging negative as above. Analgesics as needed. Headache resolved. Dehydration: GFR 69, no previous labs for comparison, IVF for hydration, repeat labs show improvement. Hypokalemia: K+ 3.2, given replacement. Repeat labs with K 3.3. Given additional replacement. Monitor. HTN: BP 160's, likely secondary to missing home meds x3days, also compounded by headache/nausea/vomiting. BP currently 140's. Restarted patient's amlodipine 5mg, BP still elevated, increased to 10mg. Monitor BP, adjust antihypertensives as needed. DVT Prophylaxis: SCD/Teds. Discharge Planning Discharge pending further clinical improvement and evaluation by neurology, hopefully later today or tomorrow. Miroslava Jensen PA-C May 12, 2017 10:00
[2017-05-12 12:00] VITALS: BP 193/84; PULSE 77; RESP 18; TEMP 98; O2SAT 98
[2017-05-12] MEDS ORDERED: amLODIPine BESYLATE 5 MG TAB PO ONE (12:00)
--- NOTE | 2017-05-12 12:21 | MB ---
cc: RADHA GORDON M.D. DATE OF CONSULTATION: 05/12/2017 REASON FOR CONSULTATION: Vertigo, right-sided paresthesias, headache. HISTORY OF PRESENT ILLNESS Ms. Angel is a pleasant 47-year-old female who on Saturday was at dinner, and suddenly developed a pain in the right side of her neck which radiated down the right upper extremity. Then the entire right side became very painful with tingling and she developed dysequilibrium feeling, a sea-sick feeling but not true vertigo as well as headache. Her symptoms have persisted. PAST MEDICAL HISTORY: She has history of intermittent mild headaches, otherwise unremarkable, history of . ALLERGIES None known. CURRENT MEDICATIONS: 1. Ibuprofen. 2. Afrin nasal spray. 3. Antivert. 4. Tiffany-Colace. 5. Norvasc. 6. Tigan. 7. Compazine. 8. Benadryl 9. Zofran 10. Tylenol. 11. Chambers as needed. 12. Milk of Magnesia. NEUROLOGICAL EXAMINATION: VITAL SIGNS: Blood pressure is 92/79, pulse 78, respiratory rate 20, temperature 98 degrees. Higher cortical functions normal. Cranial nerves intact. She has normal strength in all groups, in both upper and lower extremities. There is no drift. Fine motor skills are normal. Reflexes symmetric. Sensory exam intact. MRI of the brain is normal. MRA brain normal. MRA neck normal. CT of the head, normal. LABORATORY DATA: The white count of 11,500, hemoglobin 13.8, hematocrit 41%, platelet count 220,000. PT 10.3, INR 0.09, APTT 22. Sodium is 140, potassium 3.3, chloride 107, CO2 21.9. BUN is 7, creatinine 0.83. IMPRESSION Rule out cervical spondylosis with radiculopathy, rule out migraine. RECOMMENDATIONS MRI of the cervical spine, will also get an echocardiogram. MD VERONICA Loera/JEANIE /11:23 AM /12:11 PM
[2017-05-12] MEDS: OXYMETAZOLINE HCL 0.05% 15 ML NASAL SPRAY NASAL SCH ×2 (12:38→20:57)
[2017-05-12] MEDS: IBUPROFEN 600 MG TAB PO SCH ×3 (12:38→23:26)
[2017-05-12 13:31] LABS: BETA HCG QUANT LESS THAN 1 MIU/ML (0-5)
--- NOTE | 2017-05-12 15:07 | RADRPT ---
EXAM DATE/TIME: 05/12/2017 14:29 [place] COMPARISON: No previous studies available for comparison. INDICATIONS : Cephalgia, right side numbness. MEDICAL HISTORY : Hypertension. SURGICAL HISTORY : section. ENCOUNTER: Initial ACUITY: 1 day PAIN SCORE: 0/10 LOCATION: Paraspinal TECHNIQUE: Multiplanar, multisequence MRI examination of the cervical spine was performed. FINDINGS: VERTEBRAE: Normal vertebral body height. Homogeneous marrow signal. ALIGNMENT: No evidence of subluxation. CORD: Normal configuration and signal. POST FOSSA: The cerebellar tonsils are normal in position. C2-C3: The thecal sac has a normal configuration. There is no evidence of disc herniation or spinal canal s tenosis. The neural foramina are patent bilaterally. C3-C4: The thecal sac has a normal configuration. There is no evidence of disc herniation or spinal canal s tenosis. The neural foramina are patent bilaterally. C4-C5: The thecal sac has a normal configuration. There is no evidence of disc herniation or spinal canal s tenosis. The neural foramina are patent bilaterally. C5-C6: The thecal sac has a normal configuration. There is no evidence of disc herniation or spinal canal s tenosis. The neural foramina are patent bilaterally. C6-C7: The thecal sac has a normal configuration. There is no evidence of disc herniation or spinal canal s tenosis. The neural foramina are patent bilaterally. C7-T1: The thecal sac has a normal configuration. There is no evidence of disc herniation or spinal canal s tenosis. The neural foramina are patent bilaterally. CONCLUSION: Normal examination. Venu Mckee MD on May 12, 2017 at 15:06 Board Certified Radiologist. This report was verified electronically.
[2017-05-12 16:00] VITALS: BP 167/78; PULSE 80; RESP 20; TEMP 98.2; O2SAT 96
[2017-05-12 20:36] VITALS: BP 144/82; PULSE 84; RESP 16; TEMP 98; O2SAT 97
[2017-05-12 23:23] VITALS: BP 133/68; PULSE 90; RESP 17; TEMP 97.9; O2SAT 97
[2017-05-13] MEDS: MECLIZINE HCL 25 MG TAB PO SCH ×3 (03:11→17:44)
[2017-05-13 03:17] VITALS: BP 138/83; PULSE 75; RESP 17; TEMP 98.4; O2SAT 98
[2017-05-13] MEDS: IBUPROFEN 600 MG TAB PO SCH (05:39)
[2017-05-13 08:06] VITALS: BP 138/80; PULSE 76; RESP 21; TEMP 98.1; O2SAT 97
[2017-05-13] MEDS: OXYMETAZOLINE HCL 0.05% 15 ML NASAL SPRAY NASAL SCH ×2 (08:13→20:04)
[2017-05-13] MEDS: guaiFENesin E.R. 600 MG TAB PO SCH ×2 (08:14→20:04)
[2017-05-13] MEDS: SODIUM CHLORIDE 0.9% FLUSH 10 ML FLUSH IV FLUSH SCH ×2 (08:14→20:04)
[2017-05-13] MEDS: DOCUSATE SODIUM 50 MG/SENNA 8.6 MG TAB PO SCH (08:14)
--- NOTE | 2017-05-13 08:49 | HHI.PR ---
Subjective Remarks Follow-up for vertigo and paresthesias. The patient reports that her headache is pretty much improved. She continues to have dizziness that she describes as unsteadiness even at rest without movement. She continues to complain of difficulty focusing her vision. She feels like she is less coordinated when trying to reach for objects. She continues to have right face and left forearm tingling sensation, but states this is improved since symptoms started. Objective Vitals Vital Signs Date Time Temp Pulse Resp B/P (MAP) Pulse Ox O2 Delivery O2 Flow Rate FiO2 05/13/17 08:06 98.1 76 21 138/80 (99) 97 05/13/17 03:17 98.4 75 17 138/83 (101) 98 05/13/17 00:26 18 05/12/17 23:23 97.9 90 17 133/68 (89) 97 05/12/17 20:36 98.0 84 16 144/82 (102) 97 05/12/17 16:00 98.2 80 20 167/78 (107) 96 05/12/17 12:00 98.0 77 18 193/84 (120) 98 I/O 05/12/17 05/12/17 05/12/17 05/13/17 05/13/17 05/13/17 07:00 15:00 23:00 07:00 15:00 23:00 Intake Total 240 ml Balance 240 ml Intake Oral 240 ml # Voids 1 2 Result Diagram: 05/11/17 0643 05/11/17 0643 Imaging Last Impressions Cervical Spine MRI 05/12/17 0000 Signed Impressions: Service Date/Time: Friday, May 12, 2017 14:29 - CONCLUSION: Normal examination. Venu Mckee MD Neck Magnetic Resonance Angiography 05/10/17 173 Signed Impressions: Service Date/Time: Wednesday, May 10, 2017 19:01 - CONCLUSION: Normal carotid MRA. Fracisco Coto MD Head Magnetic Resonance Angiography 05/10/171733 Signed Impressions: Service Date/Time: Wednesday, May 10, 2017 19:01 - CONCLUSION: No acute abnormality of the intracranial arteries. Fracisco Coto MD Brain MRI 05/10/171733 Signed Impressions: Service Date/Time: Wednesday, May 10, 2017 19:01 - CONCLUSION: Normal noncontrast MRI of the brain. Fracisco Coto MD Head CT 05/10/171706 Signed Impressions: Service Date/Time: Wednesday, May 10, 2017 18:34 - CONCLUSION: Negative noncontrast head CT. Fracisco Coto MD Chest X-Ray 05/10/171706 Signed Impressions: Service Date/Time: Wednesday, May 10, 2017 18:38 - CONCLUSION: No evidence of acute cardiopulmonary disease. Fracisco Coto MD Objective Remarks GENERAL: Well-developed well-nourished. In no acute distress. SKIN: Warm and dry. No lesions noted. HEENT: Normocephalic. Pupils equal and round. Mucous membranes pink and moist. CARDIOVASCULAR: Regular rate and rhythm. No murmur appreciated. RESPIRATORY: No accessory muscle use. Clear to auscultation. Breath sounds equal bilaterally. GASTROINTESTINAL: Abdomen soft, non-tender, nondistended. Bowel sounds x4. MUSCULOSKELETAL: No obvious deformities. No clubbing or cyanosis. No edema. NEUROLOGICAL: Awake and alert. Moves upper and lower extremities spontaneously. Normal speech. Sensation grossly symmetrical in the upper extremities and the face. Strength 5/5. Finger to nose testing grossly normal. PSYCHIATRIC: Appropriate mood and affect; insight and judgment normal. A/P Problem List: (1) Vertigo ICD Code: R42 - Dizziness and giddiness Status: Acute (2) Headache ICD Code: R51 - Headache Status: Resolved (3) Intractable nausea and vomiting ICD Code: R11.2 - Nausea with vomiting, unspecified Status: Resolved (4) Dehydration ICD Code: E86.0 - Dehydration (5) HTN (hypertension) ICD Code: I10 - Essential (primary) hypertension Status: Chronic Assessment and Plan 47-year-old female with no significant PMH who presented to the ER with complaints of headache, nausea, vomiting and right-sided numbness and tingling starting earlier tonight. Benign Positional Paroxysmal Vertigo: CT Head, MRI/MRA Head/Neck and MRI Brain all normal, reviewed by me, no central etiology. Continue meclizine q8h scheduled.Give IVF for hydration. Antiemetics prn. Consult PT. Hernesto maneuver was done, patient had initial improvement of nystagmus however returned within a few minutes. Neurology consulted, recommended C-spine MRI and echocardiogram. C-spine MRI was normal. -Echocardiogram performed, results pending -Follow up neurology recommendations -PT consulted, recommends [facility] SN[facility] Paresthesias: patient reporting numbness/tingling on the right face and left forearm. No significant neurologic deficits on exam. All imaging including Brain MRI/MRA negative as above. Neurology on board. URI: suspect viral. Likely contributing to symptoms above. Afebrile with minimal leukocytosis WBC 11.5. Supportive treatment with IVF, mucinex bid, Afrin bid. Intractable Nausea/Vomiting: secondary to above, continue w/ antiemetics/ analgesics as needed. Resolved. Headache: no h/o Migraine, imaging negative as above. Analgesics as needed. Headache resolved. Hypokalemia: K+ 3.3, given replacement. Repeat BMP and magnesium level pending. HTN: Currently controlled. Continue amlodipine 10mg. Monitor BP, adjust antihypertensives as needed. DVT Prophylaxis: SCD/Teds. Discharge Planning Monitor for clinical improvement. Follow-up neurology recommendations. Problem Qualifiers (1) Headache: Qualified Codes: R51 - Headache (2) HTN (hypertension): Qualified Codes: I10 - Essential (primary) hypertension Aba Beasley May 13, 2017 08:49
[2017-05-13] MEDS: PANTOPRAZOLE SOD 20 MG DELAYED RELEASE TAB PO SCH (09:21)
[2017-05-13] MEDS: SODIUM CHLOR 0.9% 1000 ML INJ 1,000 ML IV SCH ×2 (09:22→22:18)
--- NOTE | 2017-05-13 09:44 | ECHRPT ---
Indication: TIA CONCLUSIONS Normal left ventricular size and wall thickness. The left ventricular systolic function is normal wi th an estimated ejection fraction in the range of 60-65%. Trace mitral valve regurgitation. Pulmonary arterial systolic pressure could not be estimated due to an insufficient tricuspid valve regurgitation doppler jet for measurement. BP: / HR: Rhythm: Sinus Technical Quality:Good FINDINGS LEFT VENTRICLE Normal left ventricular size and wall thickness. The left ventricular systolic function is normal wi th an estimated ejection fraction in the range of 60-65%. Left ventricular diastolic function parameters a re normal. MITRAL VALVE Trace mitral valve regurgitation. TRICUSPID VALVE Pulmonary arterial systolic pressure could not be estimated due to an insufficient tricuspid valve regurgitation doppler jet for measurement. Madhu Jaramillo MD (Electronically Signed) Final Date:13 May 2017 09:43
[2017-05-13] MEDS: IBUPROFEN 600 MG TAB PO PRN ×2 (11:51→21:44)
[2017-05-13 12:12] VITALS: BP 140/74; PULSE 91; RESP 19; TEMP 98.2; O2SAT 97
[2017-05-13] MEDS: diphenhydrAMINE HCL 50 MG/ML VIAL IV PUSH PRN (14:22)
[2017-05-13 16:16] VITALS: BP 144/77; PULSE 94; RESP 21; TEMP 99.3; O2SAT 97
[2017-05-13] MEDS ORDERED: AMLO10 PO (17:56)
[2017-05-13] MEDS ORDERED: MECL1TAB42 PO (17:56)
--- NOTE | 2017-05-13 18:50 | HHI.PR ---
Review/Management Diagnosis Hemiplegic Migraine Plan continue aspirin at 81 mg daily start topamax 25 mg bid for migraine Ok from neurology standpoint to discharge home to follow up with her physician in [place]. If she has recurrent episodes, consider [facility] as outpatient Diagnosis/Plan: Subjective Subjective Comments No acute events reported She reports improvement in right sided paresthesias and weakness. Active Medications Current Medications Medications (Trade) Dose Ordered Sig/Scott Route Start Time Stop Time Status Last Admin (Tigan Inj) 200 mg Q6H PRN IM 05/10/17 21:45 (Compazine Inj) 10 mg Q4H PRN IV PUSH 05/10/17 21:45 (Benadryl Inj) 25 mg Q4H PRN IV PUSH 05/10/17 21:45 05/13/17 14:22 Sodium Chloride 1,000 ml @ 80 mls/hr [id number] IV 05/10/17 21:36 05/13/17 09:22 (NS Flush) 2 ml UNSCH PRN IV FLUSH 05/10/17 21:45 (NS Flush) 2 ml BID IV FLUSH 05/11/17 09:00 05/12/17 20:57 (Zofran Inj) 4 mg Q6H PRN IVP 05/10/17 21:45 05/11/17 02:02 (Tylenol) 650 mg Q6H PRN PO 05/10/17 21:45 (Milk Of Magnesia Liq) 30 ml Q12H PRN PO 05/10/17 21:45 (Senokot) 17.2 mg Q12H PRN PO 05/10/17 21:45 (Dulcolax Supp) 10 mg DAILY PRN RECTAL 05/10/17 21:45 (Lactulose Liq) 30 ml DAILY PRN PO 05/10/17 21:45 (Antivert) 25 mg Q8H PO 05/11/17 10:00 05/13/17 17:44 (Mucinex Er) 600 mg BID PO 05/12/17 09:00 05/13/17 08:14 (Afrin 0.05% Trevin Klemme) 2 spray Q12HR NASAL 05/12/17 11:00 05/13/17 08:13 (Norvasc) 10 mg DAILY PO 05/13/17 09:00 05/13/17 08:14 (Protonix) 20 mg DAILY PO 05/13/17 09:00 05/13/17 09:21 (Motrin) 600 mg Q6H PRN PO 05/13/17 09:00 05/13/17 11:51 Allergies Allergies Coded Allergies No Known Allergies (Unverified05/10/17) Exam I&O / VS 05/13/17 05/13/17 05/14/17 15:00 23:00 07:00 # Voids 3 Vital Signs Date Time Temp Pulse Resp B/P (MAP) Pulse Ox O2 Delivery O2 Flow Rate FiO2 05/13/17 16:16 99.3 94 21 144/77 (99) 97 05/13/17 12:12 98.2 91 19 140/74 (96) 97 05/13/17 08:06 98.1 76 21 138/80 (99) 97 05/13/17 03:17 98.4 75 17 138/83 (101) 98 05/13/17 00:26 18 05/12/17 23:23 97.9 90 17 133/68 (89) 97 05/12/17 20:36 98.0 84 16 144/82 (102) 97 Exam Comments alert, speech normal CN intact Motor--5/5 bilaterally Objective Radiology Results MRI brain --normal MRA brain--normal MRA neck--normal MRI cervical spine --normal Diagnostic Tests ECHO cardiogram--no embolic source Yao Lnyn PhD MD May 13, 2017 18:50
[2017-05-13] MEDS: TOPIRAMATE 25 MG TAB PO SCH (20:04)
[2017-05-13 20:52] VITALS: BP 132/71; PULSE 100; RESP 18; TEMP 98.9; O2SAT 97
[2017-05-13 23:50] VITALS: BP 160/69; PULSE 103; RESP 19; TEMP 98.6; O2SAT 97
[2017-05-14] MEDS: diphenhydrAMINE HCL 50 MG/ML VIAL IV PUSH PRN ×2 (00:47→20:41)
[2017-05-14] MEDS: MECLIZINE HCL 25 MG TAB PO SCH ×3 (00:47→17:12)
[2017-05-14 04:04] VITALS: BP 131/79; PULSE 84; RESP 16; TEMP 96.4; O2SAT 97
[2017-05-14 07:36] VITALS: BP 137/82; PULSE 80; RESP 16; TEMP 98; O2SAT 94
[2017-05-14] MEDS: SODIUM CHLORIDE 0.9% FLUSH 10 ML FLUSH IV FLUSH SCH ×2 (07:47→20:40)
[2017-05-14] MEDS: OXYMETAZOLINE HCL 0.05% 15 ML NASAL SPRAY NASAL SCH ×2 (07:48→20:40)
[2017-05-14] MEDS: guaiFENesin E.R. 600 MG TAB PO SCH ×2 (07:50→20:40)
[2017-05-14] MEDS: PANTOPRAZOLE SOD 20 MG DELAYED RELEASE TAB PO SCH (07:50)
[2017-05-14] MEDS: TOPIRAMATE 25 MG TAB PO SCH ×2 (07:51→20:40)
--- NOTE | 2017-05-14 08:26 | HHI.PR ---
Subjective Remarks Follow-up for migraine variant. The patient continues to have a headache, unchanged. She continues to feel unsteady on her feet whenever she gets up to use the bedside commode. She had a sore throat recently, but states that has improved. She's been able to swallow without difficulties. She states that she came down here from [place] to visit her mom, and plans to fly home alone back to her and 4 kids. Objective Vitals Vital Signs Date Time Temp Pulse Resp B/P (MAP) Pulse Ox O2 Delivery O2 Flow Rate FiO2 05/14/17 07:36 98.0 80 16 137/82 (100) 94 05/14/17 04:04 96.4 84 16 131/79 (96) 97 05/13/17 23:50 98.6 103 19 160/69 (99) 97 05/13/17 20:52 98.9 100 18 132/71 (91) 97 05/13/17 16:16 99.3 94 21 144/77 (99) 97 05/13/17 12:12 98.2 91 19 140/74 (96) 97 I/O 05/13/17 05/13/17 05/13/17 05/14/17 05/14/17 05/14/17 07:00 15:00 23:00 07:00 15:00 23:00 Intake Total 360 ml Balance 360 ml Intake Oral 360 ml # Voids 5 Result Diagram: 05/11/17 0643 05/11/17 0643 Imaging Last Impressions Cervical Spine MRI 05/12/17 0000 Signed Impressions: Service Date/Time: Friday, May 12, 2017 14:29 - CONCLUSION: Normal examination. Venu Mckee MD Neck Magnetic Resonance Angiography 05/10/171733 Signed Impressions: Service Date/Time: Wednesday, May 10, 2017 19:01 - CONCLUSION: Normal carotid MRA. Fracisco Coto MD Head Magnetic Resonance Angiography 05/10/171733 Signed Impressions: Service Date/Time: Wednesday, May 10, 2017 19:01 - CONCLUSION: No acute abnormality of the intracranial arteries. Fracisco Coto MD Brain MRI 05/10/171733 Signed Impressions: Service Date/Time: Wednesday, May 10, 2017 19:01 - CONCLUSION: Normal noncontrast MRI of the brain. Fracisco Coto MD Head CT 05/10/171706 Signed Impressions: Service Date/Time: Wednesday, May 10, 2017 18:34 - CONCLUSION: Negative noncontrast head CT. Fracisco Coto MD Chest X-Ray 05/10/171706 Signed Impressions: Service Date/Time: Wednesday, May 10, 2017 18:38 - CONCLUSION: No evidence of acute cardiopulmonary disease. Fracisco Coto MD Objective Remarks GENERAL: Well-developed well-nourished. In no acute distress. SKIN: Warm and dry. No lesions noted. HEENT: Normocephalic. Pupils equal and round. Mild pharyngeal erythema. CARDIOVASCULAR: Regular rate and rhythm. No murmur appreciated. RESPIRATORY: No accessory muscle use. Clear to auscultation. Breath sounds equal bilaterally. GASTROINTESTINAL: Abdomen soft, non-tender, nondistended. Bowel sounds x4. MUSCULOSKELETAL: No obvious deformities. No clubbing or cyanosis. No edema. NEUROLOGICAL: Awake and alert. Moves upper and lower extremities spontaneously. Normal speech. PSYCHIATRIC: Appropriate mood and affect; insight and judgment normal. A/P Problem List: (1) Vertigo ICD Code: R42 - Dizziness and giddiness Status: Acute (2) Headache ICD Code: R51 - Headache Status: Acute (3) Intractable nausea and vomiting ICD Code: R11.2 - Nausea with vomiting, unspecified Status: Resolved (4) HTN (hypertension) ICD Code: I10 - Essential (primary) hypertension Status: Chronic Assessment and Plan 47-year-old female with no significant PMH who presented to the ER with complaints of headache, nausea, vomiting and right-sided numbness and tingling starting earlier tonight. Hemiplegic migraine: Patient with headache, gait unsteadiness, and paresthesias. CT Head, MRI/MRA Head/Neck, C-spine MRI, echocardiogram all normal. Neurology consulted, suspect symptoms secondary to hemiplegic migraine. -Continue meclizine q8h scheduled. -Neurology consulted, started Topamax, cleared patient for discharge -PT consulted, recommends continued PT, continue daily PT for now while symptomatic -Imitrex IM 1 now and continue Fioricet as needed URI: suspect viral. Likely contributing to symptoms above. Afebrile with minimal leukocytosis WBC 11.5. Supportive treatment with IVF, mucinex bid, Afrin bid. Intractable Nausea/Vomiting: secondary to above, continue w/ antiemetics/ analgesics as needed. Resolved. Hypokalemia: K+ 3.3, given replacement. Repeat BMP and magnesium level ordered. HTN: Currently controlled. Continue amlodipine 10mg. Monitor BP, adjust antihypertensives as needed. DVT Prophylaxis: SCD/Teds. Discharge Planning Discharge planning when symptoms improve and patient is able to safely ambulate. Problem Qualifiers (1) Headache: Qualified Codes: R51 - Headache (2) HTN (hypertension): Qualified Codes: I10 - Essential (primary) hypertension Aba Beasley May 14, 2017 08:26
[2017-05-14] MEDS ORDERED: SUMAtriptan INJ 6 MG/0.5 ML VIAL SQ ONE (08:30)
[2017-05-14] MEDS: ACETAMIN 325 MG/BUTALBITAL 50 MG/CAFFEINE 40 MG TAB PO PRN ×3 (09:50→23:09)
[2017-05-14] MEDS: SODIUM CHLOR 0.9% 1000 ML INJ 1,000 ML IV SCH ×2 (09:51→20:40)
[2017-05-14 11:01] LABS: AUTOMATED NEUTROPHIL # 5.8 TH/MM3 (1.8-7.7); BASOPHIL # 0.1 TH/MM3 (0-0.2); BASOPHIL % 0.7 % (0.0-2.0); EOSINOPHIL # 0.7 TH/MM3 (0-0.4); EOSINOPHIL % 6.6 % (0.0-4.0); HEMO FLAGS DIFF FINAL; LYMPHOCYTE # 2.5 TH/MM3 (1.0-4.8); MEAN CELL VOLUME 88.5 FL (80.0-100.0); MEAN CORPUSCULAR HEMOGLOBIN 30.8 PG (27.0-34.0); MEAN CORPUSCULAR HGB CONC 34.7 % (32.0-36.0); MONO % 10.5 % (0.0-8.0); NEUT % 57.2 % (16.0-70.0); PLATELET COUNT 239 TH/MM3 (150-450); RED BLOOD COUNT 5.08 MIL/MM3 (4.00-5.30); RED CELL DISTRIBUTION WIDTH 13.1 % (11.6-17.2); WHITE BLOOD COUNT 10.1 TH/MM3 (4.0-11.0)
[2017-05-14 11:29] VITALS: BP 140/72; PULSE 88; RESP 16; TEMP 98.5; O2SAT 96
[2017-05-14 11:31] LABS: BICARBONATE 28.5 MEQ/L (21.0-32.0); MAGNESIUM 2.1 MG/DL (1.5-2.5); POTASSIUM 3.1 MEQ/L (3.5-5.1)
[2017-05-14 16:35] VITALS: BP 141/77; PULSE 103; RESP 16; TEMP 99; O2SAT 97
[2017-05-14] MEDS ORDERED: POTASSIUM CHLORIDE 20 MEQ CONTROLLED RELEASE TAB PO ONE (18:00)
[2017-05-14 20:35] VITALS: BP 138/72; PULSE 103; RESP 19; TEMP 99.3; O2SAT 97
[2017-05-14 23:52] VITALS: BP 143/78; PULSE 91; RESP 18; TEMP 98.8; O2SAT 98
[2017-05-15] MEDS: MECLIZINE HCL 25 MG TAB PO SCH ×2 (02:33→09:56)
[2017-05-15 04:48] VITALS: BP 136/61; PULSE 89; RESP 17; TEMP 99.2; O2SAT 97
[2017-05-15 07:10] VITALS: BP 130/70; PULSE 89; RESP 18; TEMP 98.5; O2SAT 97
[2017-05-15] MEDS: SODIUM CHLORIDE 0.9% FLUSH 10 ML FLUSH IV FLUSH SCH (08:01)
[2017-05-15] MEDS: TOPIRAMATE 25 MG TAB PO SCH (08:01)
[2017-05-15] MEDS: OXYMETAZOLINE HCL 0.05% 15 ML NASAL SPRAY NASAL SCH (08:01)
[2017-05-15] MEDS: guaiFENesin E.R. 600 MG TAB PO SCH (08:01)
[2017-05-15] MEDS: PANTOPRAZOLE SOD 20 MG DELAYED RELEASE TAB PO SCH (08:01)
[2017-05-15] MEDS: ACETAMIN 325 MG/BUTALBITAL 50 MG/CAFFEINE 40 MG TAB PO PRN (08:02)
--- NOTE | 2017-05-15 09:18 | HHI.PR ---
Subjective Remarks Follow-up for migraine and URI. The patient was not able to stand yesterday per patient and PT report. The patient does feel like she is feeling more stable today. She was able to ambulate some in the room with assistance earlier. She would like to try to walk again with PT and a walker to see if she can go home, discussed with RN to contact PT. Paresthesias are improving some. Headache is improving some. She reports continued improvement and sinus congestion, voice hoarseness, and swallowing difficulties. Objective Vitals Vital Signs Date Time Temp Pulse Resp B/P (MAP) Pulse Ox O2 Delivery O2 Flow Rate FiO2 05/15/17 07:10 98.5 05/15/17 07:10 98.5 89 18 130/70 (90) 97 05/15/17 04:48 99.2 89 17 136/61 (86) 97 05/14/17 23:52 98.8 91 18 143/78 (99) 98 05/14/17 20:35 99.3 103 19 138/72 (94) 97 05/14/17 18:22 18 05/14/17 16:35 99.0 103 16 141/77 (98) 97 05/14/17 11:29 98.5 88 16 140/72 (94) 96 05/14/17 10:58 22 05/14/17 09:48 16 I/O 05/14/17 05/14/17 05/14/17 05/15/17 05/15/17 05/15/17 07:00 15:00 23:00 07:00 15:00 23:00 Intake Total 1000 ml Output Total 400 ml Balance 600 ml IV Total 1000 ml Output Urine Total 400 ml Result Diagram: 05/14/17 1035 05/14/17 1035 Imaging Last Impressions Cervical Spine MRI 05/12/17 0000 Signed Impressions: Service Date/Time: Friday, May 12, 2017 14:29 - CONCLUSION: Normal examination. Venu Mckee MD Neck Magnetic Resonance Angiography 05/10/17 1734 Signed Impressions: Service Date/Time: Wednesday, May 10, 2017 19:01 - CONCLUSION: Normal carotid MRA. Fracisco Coto MD Head Magnetic Resonance Angiography 05/10/17 1054 Signed Impressions: Service Date/Time: Wednesday, May 10, 2017 19:01 - CONCLUSION: No acute abnormality of the intracranial arteries. Fracisco Coto MD Brain MRI 05/10/17 1734 Signed Impressions: Service Date/Time: Wednesday, May 10, 2017 19:01 - CONCLUSION: Normal noncontrast MRI of the brain. Fracisco Coto MD Head CT 05/10/171706 Signed Impressions: Service Date/Time: Wednesday, May 10, 2017 18:34 - CONCLUSION: Negative noncontrast head CT. Fracisco Coto MD Chest X-Ray 05/10/171706 Signed Impressions: Service Date/Time: Wednesday, May 10, 2017 18:38 - CONCLUSION: No evidence of acute cardiopulmonary disease. Fracisco Coto MD Objective Remarks GENERAL: Well-developed well-nourished. In no acute distress. SKIN: Warm and dry. No lesions noted. HEENT: Normocephalic. Pupils equal and round. Mild pharyngeal erythema. CARDIOVASCULAR: Regular rate and rhythm. No murmur appreciated. RESPIRATORY: No accessory muscle use. Clear to auscultation. Breath sounds equal bilaterally. GASTROINTESTINAL: Abdomen soft, non-tender, nondistended. Bowel sounds x4. MUSCULOSKELETAL: No obvious deformities. No clubbing or cyanosis. No edema. NEUROLOGICAL: Awake and alert. Moves upper and lower extremities spontaneously. Hoarse normal speech. PSYCHIATRIC: Appropriate mood and affect; insight and judgment normal. A/P Problem List: (1) Vertigo ICD Code: R42 - Dizziness and giddiness Status: Acute (2) Headache ICD Code: R51 - Headache Status: Acute (3) Intractable nausea and vomiting ICD Code: R11.2 - Nausea with vomiting, unspecified Status: Resolved (4) HTN (hypertension) ICD Code: I10 - Essential (primary) hypertension Status: Chronic Assessment and Plan 47-year-old female with no significant PMH who presented to the ER with complaints of headache, nausea, vomiting and right-sided numbness and tingling starting earlier tonight. Hemiplegic migraine: Patient with headache, gait unsteadiness, and paresthesias. CT Head, MRI/MRA Head/Neck, C-spine MRI, echocardiogram all normal. Neurology consulted, suspect symptoms secondary to hemiplegic migraine. -Continue meclizine q8h scheduled. -Neurology consulted, started Topamax, cleared patient for discharge -PT consulted, recommends continued PT, continue daily PT for now while symptomatic -Give additional Imitrex IM 1 and continue Fioricet as needed URI: suspect viral. Likely contributing to symptoms above. Afebrile with no leukocytosis. Strep screen negative. Supportive treatment with IVF, mucinex bid, Afrin bid. Intractable Nausea/Vomiting: secondary to above, continue w/ antiemetics/ analgesics as needed. Resolved. Hypokalemia: K+ 3.1, given replacement. Magnesium within normal limits. Monitor. HTN: Currently controlled. Continue amlodipine 10mg. Monitor BP, adjust antihypertensives as needed. DVT Prophylaxis: SCD/Teds. Discharge Planning Discharge planning when patient is able to safely ambulate. Case management consulted persistence with discharge planning. Problem Qualifiers (1) Headache: Qualified Codes: R51 - Headache (2) HTN (hypertension): Qualified Codes: I10 - Essential (primary) hypertension Aba Beasley May 15, 2017 09:18
[2017-05-15] MEDS ORDERED: SUMAtriptan INJ 6 MG/0.5 ML VIAL SQ ONE (10:00)
[2017-05-15] MEDS ORDERED: TOPA25TA8 PO (10:49)
[2017-05-15] MEDS ORDERED: BUTATAB6 PO (10:49)
--- NOTE | 2017-05-15 10:57 | HHI.DS ---
Discharge Summary Admission Date May 10, 2017 at 21:28 Discharge Date: May 15, 2017 Admitting Diagnosis vertigo (1) Vertigo ICD Code: R42 - Dizziness and giddiness Diagnosis: Principal Status: Acute (2) Headache ICD Code: R51 - Headache Diagnosis: Principal Status: Acute (3) Intractable nausea and vomiting ICD Code: R11.2 - Nausea with vomiting, unspecified Diagnosis: Secondary Status: Resolved (4) HTN (hypertension) ICD Code: I10 - Essential (primary) hypertension Diagnosis: Secondary Status: Chronic Procedures None Brief History - From Admission This is a 47-year-old female with no significant PMH who presented to the ER with complaints of headache, nausea, vomiting and right-sided numbness and tingling starting earlier tonight. Patient is visiting from out of town, was at dinner with Mother earlier this evening when she had acute onset of headache with right-sided numbness and tingling. No previous history of similar symptoms in the past. Denies fever, chills or sick contacts. On arrival, BP 166/90, HR 83, O2 sat 98% on RA, Afebrile. CBC unremarkable. K+ 3.2. GFR 69. INR 0.9. CXR with no acute findings. CT Head negative. MRA Neck normal. MRA Head negative. MRI Brain normal. S/p multiple doses of antiemetics in ER w / minimal improvement, continues w/ persistent nausea/vomiting and headache. CBC/BMP: 05/14/17 1035 05/14/17 1035 Significant Findings Laboratory Tests Test 05/12/17 12:30 05/14/17 10:35 Hemoglobin 15.6 GM/DL (11.6-15.3) Monocytes (%) (Auto) 10.5 % (0.0-8.0) Eosinophils (%) (Auto) 6.6 % (0.0-4.0) Monocytes # (Auto) 1.1 TH/MM3 (0-0.9) Eosinophils # (Auto) 0.7 TH/MM3 (0-0.4) Potassium Level 3.1 MEQ/L (3.5-5.1) Estimat Glomerular Filtration Rate 72 ML/MIN (>89) Imaging Last Impressions Cervical Spine MRI 05/12/17 0000 Signed Impressions: Service Date/Time: Friday, May 12, 2017 14:29 - CONCLUSION: Normal examination. Venu Mckee MD Neck Magnetic Resonance Angiography 05/10/171733 Signed Impressions: Service Date/Time: Wednesday, May 10, 2017 19:01 - CONCLUSION: Normal carotid MRA. Fracisco Coto MD Head Magnetic Resonance Angiography 05/10/171733 Signed Impressions: Service Date/Time: Wednesday, May 10, 2017 19:01 - CONCLUSION: No acute abnormality of the intracranial arteries. Fracisco Coto MD Brain MRI 05/10/171733 Signed Impressions: Service Date/Time: Wednesday, May 10, 2017 19:01 - CONCLUSION: Normal noncontrast MRI of the brain. Fracisco Coto MD Head CT 05/10/171706 Signed Impressions: Service Date/Time: Wednesday, May 10, 2017 18:34 - CONCLUSION: Negative noncontrast head CT. Fracisco Coto MD Chest X-Ray 05/10/171706 Signed Impressions: Service Date/Time: Wednesday, May 10, 2017 18:38 - CONCLUSION: No evidence of acute cardiopulmonary disease. Fracisoc Coto MD PE at Discharge GENERAL: Well-developed well-nourished. In no acute distress. SKIN: Warm and dry. No lesions noted. HEENT: Normocephalic. Pupils equal and round. Mild pharyngeal erythema. CARDIOVASCULAR: Regular rate and rhythm. No murmur appreciated. RESPIRATORY: No accessory muscle use. Clear to auscultation. Breath sounds equal bilaterally. GASTROINTESTINAL: Abdomen soft, non-tender, nondistended. Bowel sounds x4. MUSCULOSKELETAL: No obvious deformities. No clubbing or cyanosis. No edema. NEUROLOGICAL: Awake and alert. Moves upper and lower extremities spontaneously. Hoarse normal speech. PSYCHIATRIC: Appropriate mood and affect; insight and judgment normal. Pt update on day of discharge Per nursing report the patient didn't want much better with PT today. Discussed with the patient, states she walked much better today. She does not want to do home PT or rehabilitation here, but rather back home. The patient is asking to go home so she can get establish with physicians up [place]. She states that either her mother or her will travel with her to [place], and she feels like she would be more comfortable in her family's care at home. Case management has obtained a walker for the patient. Hospital Course 47-year-old female with no significant PMH who presented to the ER with complaints of headache, nausea, vomiting and right-sided numbness and tingling starting earlier tonight. Hemiplegic migraine: Patient with headache, gait unsteadiness, and paresthesias. CT Head, MRI/MRA Head/Neck, C-spine MRI, echocardiogram all normal. Neurology consulted, suspects symptoms secondary to hemiplegic migraine. -Neurology consulted, started Topamax, cleared patient for discharge -PT consulted, recommends continued PT and a walker -Given Imitrex IM 2 and will continue Fioricet as needed URI: suspect viral. Likely contributing to symptoms above. Afebrile with no leukocytosis. Strep screen negative. Given supportive treatment. Symptoms improving. HTN: Blood pressure was elevated and home amlodipine was increased from 5 mg to 10mg with good effect. Pt Condition on Discharge: Stable Discharge Disposition: Discharge Home Discharge Time: > 30 minutes Discharge Instructions DIET: Follow Instructions for: Heart Healthy Diet Activities you can perform: Regular-No Restrictions Other Activity Instructions: Ambulate with assistance Follow up Referrals: Neurology - 2 Weeks with Yao Lynn PhD MD PCP Follow-up - 1 Week New Medications: Amlodipine (Norvasc) 10 Mg Tab 10 MG PO DAILY for Blood Pressure Management, #30 TAB Cigvrwnhha-Igeerqulseqtv-Hyiitmrh (Vdlvequpqb-Moeacwvrkxdfp-Gahnclug) 50-325-40 Mg Tab 1 TAB PO Q6H PRN for HEADACHE, #12 TAB Do not exceed 6 tablets/day. Meclizine HCl (Meclizine 25) 25 Mg Tab 25 MG PO Q8H PRN for DIZZINESS, #15 TAB Topiramate (Topamax) 25 Mg Tab 25 MG PO Q12HR for Migraines, #60 TAB Discontinued Medications: Amlodipine (Amlodipine) 5 Mg Tab 5 MG PO DAILY for Blood Pressure Management, #30 TAB 0 Refills Aba Beasley May 15, 2017 10:57
[2017-05-15 11:04] VITALS: RESP 18
== END 2017-05-15 11:42 | disposition home or self-care (01) ==
LOC: NEPC 16:29 → NEDA 21:28 → NEPFCDU 23:30
PROVIDERS: ADMIT Internal Medicine; ATTEND Internal Medicine
DX: R42 Dizziness and giddiness (principal); G43.409 Hemiplegic migraine, not intractable, without status migrainosus; E86.0 Dehydration; E87.6 Hypokalemia; I10 Essential (primary) hypertension; R20.0 Anesthesia of skin; R20.2 Paresthesia of skin; H55.09 Other forms of nystagmus
CPT/HCPCS: 70450; 70544; 70548; 70551; 71010; 72141; 80048; 80053; 83735; 84702; 84703; 85025; 85610; 85730; 87081; 87880; 93005; 93306; 96361; 96372; 96374; 96375; 96376; A9579; G0378; G8987-GP; G8988-GP; G8996-GN; G8997-GN; G8998-GN; J0780; J1200; J2060; J2405; J2765; J3030; J7030